=== PATIENT | male | born 1940 | race Caucasian/White ===

== ENCOUNTER 2016-06-27 08:44 | Emergency (ER) | payer MEDICAID ==
[~2016-06-27] VITALS: Ht 147.3 cm; Wt 62.8 kg
[~2016-06-27 08:44] MED LIST: ASPI81CT33; ENAL10TA41; METO50TE2 PO; ORE25; SIMV20TA6; TRAM50TA3; [UNRECOGNIZED DRUG - CODE]
[2016-06-27 09:20] VITALS: BP 151/73
[2016-06-27 10:37] LABS: BASOPHILS # (AUTO) 0.1 K/uL (0.00-0.22); BASOPHILS % (AUTO) 1.6 % (0.0-2.0); EOSINOPHILS # (AUTO) 0.2 K/uL (0-0.4); EOSINOPHILS % (AUTO) 3.1 % (0.0-4.0); HEMATOCRIT 47.5 % (36-52); HEMOGLOBIN 15.3 g/dL (12.0-18.0); LYMPHOCYTES # (AUTO) 1.2 K/uL (2.0-11.5); LYMPHOCYTES % (AUTO) 19.5 % (20.5-51.1); MEAN CORPUSCULAR HEMOGLOBIN 30 pg (27-31); MEAN CORPUSCULAR HGB CONC 32 g/dL (33-37); MEAN CORPUSCULAR VOLUME 94 fL (80-94); MONOCYTES # (AUTO) 0.3 K/uL (0.8-1.0); MONOCYTES % (AUTO) 4.6 % (1.7-9.3); NEUTROPHILS # (AUTO) 4.4 K/uL (1.8-7.7); NEUTROPHILS % (AUTO) 71.2 % (42.2-75.2); PLATELET COUNT (AUTO) 192 K/uL (140-450); RED BLOOD CELL COUNT(AUTO) 5.08 MIL/uL (4.20-6.10); RED CELL DISTRIBUTION WIDTH 13.4 % (11.6-13.7); WHITE BLOOD COUNT (AUTO) 6.2 K/uL (4.8-10.8)
[2016-06-27 10:56] LABS: INR 1.1 (0.8-1.2); PARTIAL THROMBOPLASTIN TIME 27.5 secs (22-35.6); PROTHROMBIN TIME 10.6 secs (10.8-13.4)
[2016-06-27 10:58] LABS: ALANINE AMINOTRANSFERASE 28 U/L (12-78); ALBUMIN 4.2 g/dL (3.4-5.0); ALKALINE PHOSPHATASE 75 U/L (46-116); ANION GAP 9.7 (8-16); ASPARTATE AMINOTRANSFERASE 26 U/L (15-37); CALCIUM 9.1 mg/dL (8.5-10.1); CHLORIDE 102 mmol/L (98-107); CREATININE 0.9 mg/dL (0.6-1.3); GLUCOSE 98 mg/dL (74-106); POTASSIUM 3.7 mmol/L (3.5-5.1); SODIUM SERUM 137 mmol/L (136-145); TOTAL BILIRUBIN 1.2 mg/dL (0.0-1.0); TOTAL PROTEIN, SERUM 7.9 g/dL (6.4-8.2); UREA NITROGEN, BLOOD 18 mg/dL (7-18)
[2016-06-27 12:45] VITALS: BP 134/100
== END 2016-06-27 12:45 | disposition home or self-care (01) ==
LOC: MED 08:44
PROC: 4A02X4Z Measurement of Cardiac Electrical Activity, External Approach (ICD-10-PCS; principal; 2016-06-27)
PROC: B34KZZZ Ultrasonography of Bilateral Upper Extremity Arteries (ICD-10-PCS; 2016-06-27)
DX: M25.512 Pain in left shoulder (principal); R58 Hemorrhage, not elsewhere classified; R06.00 Dyspnea, unspecified; I51.9 Heart disease, unspecified; I10 Essential (primary) hypertension
CPT/HCPCS: 36415; 71010; 80053; 83880; 84484; 85025; 85610; 85730; 93005; 93930; 99285; Q0092

== ENCOUNTER 2017-08-16 01:15 | Emergency (ER) | payer MEDICAID ==
[~2017-08-16] VITALS: Ht 147.3 cm; Wt 63.1 kg
[~2017-08-16 01:15] MED LIST changes: -ASPI81CT33; +ASPI81CT33 PO; +ENAL10TA21; -ENAL10TA41; -ORE25; +ORE25 PO; -SIMV20TA6; +SIMV20TA6 PO; -TRAM50TA3; +TRAM50TA3 PO; -[UNRECOGNIZED DRUG - CODE]; +[UNRECOGNIZED DRUG - CODE] PO
[2017-08-16 01:23] VITALS: BP 171/83
[2017-08-16] MEDS ORDERED: ENALAPRIL 5 MG TAB PO ONE (01:55)
[2017-08-16 02:22] VITALS: BP 126/55
== END 2017-08-16 02:23 | disposition home or self-care (01) ==
LOC: MED 01:15
DX: I10 Essential (primary) hypertension (principal); R51 Headache; Z79.899 Other long term (current) drug therapy
CPT/HCPCS: 99282

== ENCOUNTER 2018-06-21 07:33 | Emergency (ER) | payer MEDICAID ==
[~2018-06-21] VITALS: Ht 152.4 cm; Wt 64.4 kg
[2018-06-21 07:33] VITALS: BP 170/80
[~2018-06-21 07:33] MED LIST changes: -ENAL10TA21; +VAS10
--- NOTE | 2018-06-21 07:43 | NUR ---
Pt triaged and ambulated to bed 4.
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
[2018-06-21] MEDS ORDERED: cloNIDine 0.1 MG TAB PO ONE (08:05)
[2018-06-21] MEDS ORDERED: LORazepam 1 MG TAB PO ONE (08:05)
[2018-06-21 09:01] VITALS: BP 117/72
--- NOTE | 2018-06-21 09:01 | NUR ---
Patient discharged with v/s stable. Written and verbal after care instructions given and explained. Patient alert, oriented and verbalized understanding of instructions. Ambulatory with steady gait. All questions addressed prior to discharge. ID band removed. Patient advised to follow up with PMD. Rx of Vistaril given. Patient educated on indication of medication including possible reaction and side effects. Opportunity to ask questions provided and answered.
== END 2018-06-21 09:01 | disposition home or self-care (01) ==
LOC: MED 07:33
DX: F41.0 Panic disorder [episodic paroxysmal anxiety] (principal); I10 Essential (primary) hypertension; Z79.82 Long term (current) use of aspirin; Z79.899 Other long term (current) drug therapy
CPT/HCPCS: 99283; 99284